=== PATIENT | male | born 1955 | race Caucasian/White ===

== ENCOUNTER 2017-12-12 11:21 | Observation (INO) | payer OTHER ==
[2017-12-12] MEDS: SOD CHLORIDE 0.9% 1,000 ML IV ×3 (06:00→23:30)
[2017-12-12] MEDS: CEFAZOLIN 2 GM/50 ML (PMX) 50 ML IVPB (06:00)
[2017-12-12] MEDS ORDERED: MEPERIDINE 25 MG INJ IV (13:00)
[2017-12-12] MEDS ORDERED: HYDROmorphONE (0.2 MG/ML) 10ML SYG IV ×3 (13:00)
[2017-12-12] MEDS ORDERED: DIPHENHYDRAMINE 50 MG INJ IV (13:00)
[2017-12-12] MEDS ORDERED: METOCLOPRAMIDE 10 MG INJ IV (13:00)
[2017-12-12] MEDS ORDERED: ONDANSETRON 4 MG INJ IV ×2 (13:00→23:30)
[2017-12-12] MEDS ORDERED: FENTAnyl 50 MCG/ML VIAL IV (13:00)
[2017-12-12] MEDS ORDERED: FENTAnyl 50 MCG/ML VIAL (13:36)
[2017-12-12] MEDS ORDERED: CEFAZOLIN 1 GM INJ (14:16)
[2017-12-12] MEDS ORDERED: ROCURONIUM 50 MG INJ (14:16)
[2017-12-12] MEDS ORDERED: LIDOCAINE 100 MG SYRINGE (14:16)
[2017-12-12] MEDS ORDERED: PROPOFOL 40 ML (14:16)
[2017-12-12] MEDS ORDERED: SUCCINYLCHOLINE CHLORIDE 100 MG/5 ML SYG IV (14:16)
[2017-12-12] MEDS ORDERED: SUGAMMADEX SODIUM 200 MG/2 ML VIAL IV (14:16)
[2017-12-12] MEDS: BUPIVACAINE 0.25% (MPF) 30 ML INJ (14:46)
[2017-12-12] MEDS: FENTAnyl 50 MCG/ML VIAL IV (15:17)
[2017-12-12] MEDS: DOCUSATE SODIUM 250 MG CAP PO (15:18)
[2017-12-12] MEDS ORDERED: hydrALAzine 20 MG INJ (15:26)
[2017-12-12] MEDS: hydrALAzine 20 MG INJ IV (15:43)
[2017-12-12] MEDS: HYDROCODONE/APAP (5/325) TAB PO (16:15)
[2017-12-12] MEDS ORDERED: morphine 2 MG INJ IV (22:00)
[2017-12-12] MEDS: CEPASTAT LOZENGE MT ×2 (22:09→23:23)
[2017-12-12] MEDS: GUAIFENESIN/DM 5ML CUP PO (23:24)
[2017-12-12] MEDS ORDERED: BISACODYL (EC) 5 MG TAB PO (23:30)
[2017-12-12] MEDS ORDERED: DOCUSATE SODIUM 100 MG CAP PO (23:30)
[2017-12-12] MEDS ORDERED: GLUCOSE GEL 15 GRAM TUBE PO ×2 (23:30)
[2017-12-12] MEDS ORDERED: GLUCAGON 1 MG INJ IM (23:30)
[2017-12-12] MEDS ORDERED: DEXTROSE 50% 50 ML SYRINGE IV ×2 (23:30)
[2017-12-12] MEDS ORDERED: GLUCOSE GEL 15 GRAM TUBE BUCCAL (23:30)
[2017-12-13] MEDS: ACETAMINOPHEN 325 MG TAB PO (03:43)
[2017-12-13 05:40] LABS: ADD MAN DIFF? NO
[2017-12-13 05:43] LABS: BASOPHILS % 0.3 % (0.0-2.0); EOSINOPHILS # 0.1 10^3/ul (0.0-0.5); EOSINOPHILS % 0.4 % (0.0-7.0); HEMATOCRIT 42.8 % (42.0-52.0); HEMOGLOBIN 14.1 g/dl (14.0-18.0); LYMPHOCYTES # 1.5 10^3/ul (0.8-2.9); LYMPHOCYTES % 12.4 % (15.0-51.0); MEAN CORPUSCULAR HEMOGLOBIN 27.8 pg (29.0-33.0); MEAN CORPUSCULAR HGB CONC 32.9 g/dl (32.0-37.0); MEAN CORPUSCULAR VOLUME 84.4 fl (82.0-101.0); MEAN PLATELET VOLUME 11.9 fl (7.4-10.4); MONOCYTE # 1.1 10^3/ul (0.3-0.9); NEUTROPHIL # 9.5 10^3/ul (1.6-7.5); NEUTROPHILS % 77.7 % (39.0-77.0); PLATELET COUNT 166 10^3/UL (140-415); RED BLOOD COUNT 5.07 10^6/ul (4.70-6.10); RED CELL DISTRIBUTION WIDTH 13.9 % (11.5-14.5)
[2017-12-13 05:43] LABS: WHITE BLOOD COUNT 12.2 10^3/ul (4.8-10.8)
[2017-12-13] MEDS: PANTOPRAZOLE (EC) 40 MG TAB PO (05:50)
[2017-12-13 06:05] LABS: ALANINE AMINOTRANSFERASE 34 IU/L (13-69); ALBUMIN/GLOBULIN RATIO 1.21; ALKALINE PHOSPHATASE 67 IU/L (42-121); ANION GAP 14 (8-16); ASPARTATE AMINO TRANSFERASE 29 IU/L (15-46); BILIRUBIN,INDIRECT 0.2 mg/dl (0-1.1); BILIRUBIN,TOTAL 0.2 mg/dl (0.2-1.3); BLOOD UREA NITROGEN 14 mg/dl (7-20); CARBON DIOXIDE 28 mmol/L (21-31); CHLORIDE 104 mmol/L (97-110); CREATININE 0.91 mg/dl (0.61-1.24); GLUCOSE 156 mg/dl (70-220); SODIUM 142 mmol/L (135-144); TOTAL PROTEIN 7.3 g/dl (6.1-8.1)
[2017-12-13] MEDS: INSULIN ASPART [NOVOLOG] 3 ML PEN SC (07:50)
== END 2017-12-13 09:30 | disposition home or self-care (01) ==
LOC: SDS 11:21 → MS1 20:55 → SDS 20:06 → MS1 20:06
PROVIDERS: Surgery
DX: K64.8 Other hemorrhoids (principal); K64.4 Residual hemorrhoidal skin tags; I10 Essential (primary) hypertension; E11.9 Type 2 diabetes mellitus without complications; E78.5 Hyperlipidemia, unspecified
CPT/HCPCS: 45300; 71045; 80053; 82962; 85025; 88304